=== PATIENT | female | born 1965 | race Caucasian/White ===

== ENCOUNTER → 2018-02-23 13:13 | Outpatient (CLI) | payer OTHER, SELFPAY ==
[2018-02-25 14:10] LABS: Lyme SCREEN w/ Reflex IgG IgM < 0.90 (< 0.90)
== END ==
PROVIDERS: Visit Provider Physician Assistant
DX: T14.8XXA Other injury of unspecified body region, initial encounter (principal); W57.XXXA Bitten or stung by nonvenomous insect and other nonvenomous arthropods, initial encounter
CPT/HCPCS: 36415; 86618

== ENCOUNTER → 2018-08-02 15:13 | Outpatient (CLI) | payer OTHER, MEDICAID, SELFPAY ==
--- NOTE | 2018-08-02 | DI.RAD.S_ITS ---
PROCEDURE: XR SHOULDER LT MIN 2V INDICATIONS: left shoulder pain and limited range of motion TECHNIQUE: 3 views of the shoulder were acquired. COMPARISON: None. FINDINGS: Bones: No fractures or dislocations. No suspicious bony lesions. Visualized ribs appear intact. Soft tissues: No suspicious soft tissue calcifications. IMPRESSION: No fracture. If the patient's pain or other symptoms persist, consider further evaluation with MRI Dictated by: Alfonso Bryant M.D. on 08/02/2018 at 16:13 Approved by: Alfonso Bryant M.D. on 08/02/2018 at 16:14
== END ==
PROVIDERS: PCP Internal Medicine; Visit Provider Internal Medicine
DX: M25.512 Pain in left shoulder (principal)
CPT/HCPCS: 73030